=== PATIENT | male | born 1945 | race Hispanic/Latino ===

== ENCOUNTER 2018-02-05 05:56 | Day surgery (SDC) | payer MEDICARE, BC ==
[2018-01-16 11:37] VITALS: BMI 31.1
[2018-02-05] MEDS ORDERED: Lidocaine 1% Inj (20ml) ONE (07:56)
[2018-02-05] MEDS ORDERED: Bupivacaine 0.5% 50 ML IJ ONE (07:56)
[2018-02-05] MEDS ORDERED: Propofol 10 mg/ml Inj (20 ML) ONE (08:06)
[2018-02-05] MEDS ORDERED: Midazolam 2 MG/2 ML VIAL ONE (08:07)
[2018-02-05] MEDS ORDERED: Rocuronium 10 mg/ml (5 ml) ONE (08:08)
[2018-02-05] MEDS ORDERED: Glycopyrrolate 0.2 mg/ml (2ml vial) ONE (08:50)
[2018-02-05] MEDS ORDERED: Neostigmine Methylsulfate 3mg/3ml Syringe IV ONE (08:51)
[2018-02-05] MEDS ORDERED: Phenylephrine 10 mg/ml Inj ONE (09:01)
--- NOTE | 2018-02-05 09:29 | PCM.SURG1 ---
Surgeon's Initial Post Op Note - Surgeon's Notes Surgeon: Dr. Petit Plaster Foreman: Dr. Armando PGY3 Type of Anesthesia: General Endo Pre-Operative Diagnosis: low back sebaceous cyst Operative Findings: see dictation Post-Operative Diagnosis: same Operation Performed: sebaceous cyst excision w/ flap closure Specimen/Specimens Removed: low back sebaceous cyst Estimated Blood Loss: EBL {In ML}: 5 Blood Products Given: N/A Drains Used: No Drains Post-Op Condition: Good Date of Surgery/Procedure: 02/05/18 Time of Surgery/Procedure: 09:29
[2018-02-05] MEDS ORDERED: Lactated Ringer's 1,000 ML IV SCH (09:30)
[2018-02-05 10:18] VITALS: RESP 18
[2018-02-05 10:26] VITALS: TEMP 97.5
[2018-02-05 11:00] VITALS: BP 107/88; PULSE 80; O2SAT 97
--- NOTE | 2018-02-05 14:11 | OP ---
PROCEDURE DATE: 02/05/2018 PREOPERATIVE DIAGNOSIS: Sebaceous cyst remnant of the lower back. POSTOPERATIVE DIAGNOSIS: Sebaceous cyst remnant of the lower back. PROCEDURES PERFORMED: 1. Excision of the remnant of the sebaceous cyst of the back. 2. Advancing flap closure of a 12 x 6 cm wound. SURGEON: Ole Petit MD. TELEVISION OPERATOR: Ivone Armando DO. TYPE OF ANESTHESIA: General endotracheal anesthesia. ANESTHESIOLOGIST: Juan Becerra MD. ESTIMATED BLOOD LOSS: Minimal. SPECIMEN: Sebaceous cyst remnant. DESCRIPTION OF PROCEDURE: The patient is a 72-year-old male with history of an infected sebaceous cyst with abscess, which was drained previously. The patient had the wound healed; however, there was still a remnant of the sebaceous cyst underlying the wound and adjacent to it and the decision was made to proceed with reexcision of the sebaceous cyst remnant. The patient was brought to the operating room and placed on the operating table in a supine position. The patient was connected to the EKG, blood pressure and pulse oximetry monitors. The patient then underwent a general endotracheal anesthesia and was prepped and draped in the usual sterile fashion. Prior to that, a standard timeout procedure took place with everybody in the room agreed as to the patient identity, diagnosis and procedure to be performed. Next, the patient was turned into prone position and supported with bolsters. The patient was prepped and draped in the usual sterile fashion. Using a #15 blade, an incision was made in the elliptical fashion around the lesion, the incision was about 12 cm long on the sides and extended over about 6 cm vertically. That portion of the skin was carefully excised with underlying sebaceous cyst remnant. This was then carefully noted to avoid any violation of the cyst cavity. Once this was done, the tissue was resected all the way down to the muscle fascia. Next, the wound was copiously irrigated, all the irrigant fluid was suctioned out. There was small areas of bleeding, which were cauterized and excellent hemostasis was established. Now in order to close that wound, which was as I said 12 x 6 cm I had to proceed with raising flaps both inferiorly and superiorly for about an inch and half in order to be able to reapproximate the skin. Once this was done, the wound was closed in layers using 3-0 Vicryl deep dermal layers and 2-0 nylon vertical mattress stitches for closure of the skin. The wound was then covered with sterile dressing. The patient tolerated the procedure well and there were no complications. The patient was awakened and transferred to recovery room for further observation. Ole Petit MD
== END 2018-02-05 11:30 | disposition home or self-care (01) ==
LOC: SDS 05:56
PROVIDERS: ATTEND General Practice
DX: L72.0 Epidermal cyst (principal); L72.3 Sebaceous cyst
CPT/HCPCS: 14001; 88304; J0690; J2001; J2250; J2370; J2405; J2704; J2710; J3010; J7120